=== PATIENT | male | born 1990 | race Caucasian/White ===

== ENCOUNTER → 2017-02-24 | Outpatient (CLI) | payer OTHER ==
--- NOTE | 2017-02-24 17:09 | REP ---
Right TIB-fib series: Two views. History: Small piece of metal imbedded into the lower leg. No comparison radiographs. Findings: AP and lateral views of the right tibia and fibula demonstrate a small 2 mm metallic foreign body projecting in the posteromedial calf soft tissues. This is probably intramuscular. No fracture is seen. No other bony abnormality is seen. Impression: Posteromedial proximal calf soft tissue metallic foreign body. Signed by Cecil Shirley MD 02/25/2017 09:23 A
== END ==
LOC: M ADAMS 14:24
PROVIDERS: ATTEND Physician Assistant Medical
DX: S80.851A Superficial foreign body, right lower leg, initial encounter (principal); X58.XXXA Exposure to other specified factors, initial encounter; Y92.89 Other specified places as the place of occurrence of the external cause; Y93.89 Activity, other specified; Y99.8 Other external cause status

== ENCOUNTER → 2017-10-21 | Outpatient (CLI) | payer OTHER ==
[2017-10-21 16:34] LABS: BASO # 0.1 10^3/uL (0.0-0.2); BASO % 0.5 % (0.0-1.0); EOS % 0.3 % (0.0-3.0); HEMOGLOBIN 17.8 g/dl (14.0-18.0); IMMATURE GRANULOCYTE % 0.5 % (0-3.0); LYMPH # 1.3 10^3/uL (1.5-6.5); LYMPH % 13.4 % (24.0-44.0); MEAN CORPUSCULAR HEMOGLOBIN 32.2 pg (27.0-33.0); MEAN CORPUSCULAR HGB CONC 34.9 g/dl (32.0-36.5); MEAN CORPUSCULAR VOLUME 92.2 fl (80.0-96.0); MONO # 1.2 10^3/uL (0.0-0.8); MONO % 12.1 % (0.0-5.0); NEUTROPHILS # 7.2 10^3/uL (1.8-7.7); NEUTROPHILS % 73.2 % (36.0-66.0); PLATELET COUNT, AUTOMATED 262 10^3/uL (150-450); RED BLOOD COUNT 5.53 10^6/uL (4.30-6.10); RED CELL DISTRIBUTION WIDTH 11.9 % (11.5-14.5); WHITE BLOOD COUNT 9.9 10^3/uL (4.0-10.0)
[2017-10-21 19:31] LABS: ALBUMIN 4.1 GM/DL (3.2-5.2); ALBUMIN/GLOBULIN RATIO 1.14 (1.00-1.93); ALKALINE PHOSPHATASE 101 U/L (45-117); ALT/SGPT 237 U/L (12-78); ANION GAP 10 MEQ/L (8-16); AST/SGOT 149 U/L (7-37); BLOOD UREA NITROGEN 10 MG/DL (7-18); CALCIUM LEVEL 9.5 MG/DL (8.5-10.1); CARBON DIOXIDE LEVEL 28 MEQ/L (21-32); CHLORIDE LEVEL 104 MEQ/L (98-107); CREATININE FOR GFR 1.02 MG/DL (0.70-1.30); FREE T4 1.11 NG/DL (0.76-1.46); GLOMERULAR FILTRATION RATE > 60.0 (>60); GLUCOSE, FASTING 124 MG/DL (70-100); POTASSIUM SERUM 4.2 MEQ/L (3.5-5.1); SODIUM LEVEL 142 MEQ/L (136-145); TOTAL PROTEIN 7.7 GM/DL (6.4-8.2)
== END ==
LOC: M WUC 15:26
DX: R42 Dizziness and giddiness (principal)
CPT/HCPCS: 84443

== ENCOUNTER 2022-08-05 17:28 | Emergency (ER) | payer OTHER ==
[~2022-08-05] VITALS: Ht 172.7 cm; Wt 78.2 kg
[2022-08-05] MEDS ORDERED: LISI5TAB11 PO (17:35)
[2022-08-05 18:47] LABS: BASO # 0.1 10^3/uL (0.0-0.2); EOS % 0.1 % (0.0-3.0); HEMATOCRIT 39.5 % (42.0-52.0); HEMOGLOBIN 13.5 g/dl (13.5-17.5); LYMPH # 0.6 10^3/uL (1.5-5.0); LYMPH % 7.7 % (24.0-44.0); MEAN CORPUSCULAR HGB CONC 34.2 g/dl (32.0-36.5); MEAN CORPUSCULAR VOLUME 99.5 fl (80.0-96.0); MONO # 1.1 10^3/uL (0.0-0.8); MONO % 13.7 % (2.0-8.0); NEUTROPHILS # 5.9 10^3/uL (1.5-8.5); NEUTROPHILS % 77.1 % (36.0-66.0); RED BLOOD COUNT 3.97 10^6/uL (4.30-6.10); WHITE BLOOD COUNT 7.6 10^3/uL (4.0-10.0)
[2022-08-05 19:00] LABS: PLATELET COUNT, AUTOMATED 94 10^3/uL (150-450)
[2022-08-05 19:09] LABS: BLOOD UREA NITROGEN < 5 MG/DL (9-23); CALCIUM LEVEL 7.9 MG/DL (8.5-10.1); CARBON DIOXIDE LEVEL 26 MMOL/L (20-31); CHLORIDE LEVEL 103 MMOL/L (98-107); CREATININE FOR GFR 0.53 MG/DL (0.70-1.30); GLOMERULAR FILTRATION RATE > 60.0 (>60); GLUCOSE, FASTING 105 MG/DL (60-100); POTASSIUM SERUM 3.3 MMOL/L (3.5-5.1); SODIUM LEVEL 140 MMOL/L (136-145)
[2022-08-05] MEDS ORDERED: POTASSIUM CHLORIDE 10MEQ SR TABLET PO ONE (19:15)
[2022-08-05 20:00] VITALS: BP 128/81
== END 2022-08-05 20:46 | disposition home or self-care (01) ==
LOC: M ED 17:28
DX: K40.90 Unilateral inguinal hernia, without obstruction or gangrene, not specified as recurrent (principal); K74.60 Unspecified cirrhosis of liver; I10 Essential (primary) hypertension; F10.10 Alcohol abuse, uncomplicated

== ENCOUNTER → 2022-08-05 | Outpatient (CLI) | payer OTHER ==
[~2022-08-05] MED LIST: LISI5TAB11 PO
== END ==
LOC: M RAD 14:18
PROVIDERS: ATTEND Physician Assistant Medical
DX: N50.812 Left testicular pain (principal)

== ENCOUNTER 2022-08-07 16:33 | Inpatient (IN) | payer OTHER ==
[~2022-08-07] VITALS: Ht 172.7 cm; Wt 77.3 kg
[2022-08-07] MEDS ORDERED: MULTIVITAMIN -ADULT INJECTION 10 ML, THIAMINE INJection 100 MG, FOLIC ACID 1 MG in NS 1... IV ONE (17:45)
[2022-08-07] MEDS ORDERED: LORazepam 2 MG/ML VIAL IV STA (17:45)
[2022-08-07 18:20] LABS: BASO # 0.1 10^3/uL (0.0-0.2); BASO % 0.6 % (0.0-1.0); EOS % 0.1 % (0.0-3.0); HEMATOCRIT 36.5 % (42.0-52.0); HEMOGLOBIN 12.4 g/dl (13.5-17.5); LYMPH # 0.4 10^3/uL (1.5-5.0); LYMPH % 4.8 % (24.0-44.0); MEAN CORPUSCULAR HEMOGLOBIN 34.3 pg (27.0-33.0); MEAN CORPUSCULAR VOLUME 100.8 fl (80.0-96.0); MONO % 12.1 % (2.0-8.0); NEUTROPHILS # 6.7 10^3/uL (1.5-8.5); NEUTROPHILS % 81.9 % (36.0-66.0); PLATELET COUNT, AUTOMATED 91 10^3/uL (150-450); RED BLOOD COUNT 3.62 10^6/uL (4.30-6.10); WHITE BLOOD COUNT 8.1 10^3/uL (4.0-10.0)
[2022-08-07 18:50] LABS: ALBUMIN 2.4 G/DL (3.2-5.2); BILIRUBIN,DIRECT 3.4 MG/DL (<0.4); BILIRUBIN,TOTAL 5.3 MG/DL (0.3-1.2); TOTAL PROTEIN 6.5 G/DL (5.7-8.2)
[2022-08-07 18:53] LABS: BLOOD UREA NITROGEN 8 MG/DL (9-23); CALCIUM LEVEL 8.2 MG/DL (8.5-10.1); CARBON DIOXIDE LEVEL 20 MMOL/L (20-31); CHLORIDE LEVEL 104 MMOL/L (98-107); CREATININE FOR GFR 0.58 MG/DL (0.70-1.30); GLOMERULAR FILTRATION RATE > 60.0 (>60); GLUCOSE, FASTING 110 MG/DL (60-100); SODIUM LEVEL 139 MMOL/L (136-145)
[2022-08-07] MEDS ORDERED: OXAZEPAM 15MG CAP PO ONE (19:35)
[2022-08-07] MEDS ORDERED: LISI5TAB11 PO (22:57)
[2022-08-07] MEDS ORDERED: [UNRECOGNIZED DRUG - CODE] PO (22:57)
[2022-08-07] MEDS ORDERED: KETO2CR EXT (22:57)
[2022-08-07] MEDS ORDERED: HOME MED LIST COMPLETE! XX SCH (23:00)
[2022-08-08 00:12] LABS: RSV AMPLIFICATION NEGATIVE (NEGATIVE)
[2022-08-08 05:57] LABS: BASO # 0.1 10^3/uL (0.0-0.2); BASO % 0.9 % (0.0-1.0); EOS # 0.1 10^3/uL (0.0-0.5); EOS % 0.8 % (0.0-3.0); HEMATOCRIT 36.5 % (42.0-52.0); HEMOGLOBIN 12.2 g/dl (13.5-17.5); LYMPH % 11.1 % (24.0-44.0); MEAN CORPUSCULAR HEMOGLOBIN 34.2 pg (27.0-33.0); MEAN CORPUSCULAR HGB CONC 33.4 g/dl (32.0-36.5); MEAN CORPUSCULAR VOLUME 102.2 fl (80.0-96.0); MONO # 1.3 10^3/uL (0.0-0.8); MONO % 14.4 % (2.0-8.0); NEUTROPHILS # 6.3 10^3/uL (1.5-8.5); NEUTROPHILS % 72.3 % (36.0-66.0); RED BLOOD COUNT 3.57 10^6/uL (4.30-6.10); WHITE BLOOD COUNT 8.8 10^3/uL (4.0-10.0)
[2022-08-08 05:58] LABS: PLATELET COUNT, AUTOMATED 96 10^3/uL (150-450)
[2022-08-08 06:06] LABS: INR 1.51; PROTHROMBIN TIME 18.5 SECONDS (12.5-14.5)
[2022-08-08 06:21] LABS: ALBUMIN 2.2 G/DL (3.2-5.2); ALKALINE PHOSPHATASE 198 U/L (46-116); ALT/SGPT 35 U/L (7.0-40); AST/SGOT 112 U/L (<34); BILIRUBIN,TOTAL 6.2 MG/DL (0.3-1.2); BLOOD UREA NITROGEN 8 MG/DL (9-23); CALCIUM LEVEL 7.9 MG/DL (8.5-10.1); CARBON DIOXIDE LEVEL 22 MMOL/L (20-31); CHLORIDE LEVEL 105 MMOL/L (98-107); CREATININE FOR GFR 0.54 MG/DL (0.70-1.30); GLOMERULAR FILTRATION RATE > 60.0 (>60); GLUCOSE, FASTING 100 MG/DL (60-100); POTASSIUM SERUM 3.6 MMOL/L (3.5-5.1); SODIUM LEVEL 139 MMOL/L (136-145); TOTAL PROTEIN 5.9 G/DL (5.7-8.2)
[2022-08-08 08:58] LABS: SALICYLATE LEVEL < 3.0 MG/DL (<30)
[2022-08-08] MEDS ORDERED: FOLIC ACID 1MG TAB PO SCH (09:00)
[2022-08-08] MEDS ORDERED: THIAMINE 100 MG TAB PO SCH (09:00)
[2022-08-08 09:13] LABS: HEPATITIS B SURFACE ANTIGEN NEGATIVE (NEGATIVE)
[2022-08-08] MEDS: MULTIVITAMINS/MINERALS THERAP 1 TAB PO SCH (09:25)
[2022-08-08] MEDS: lisinopriL 5 MG TAB PO SCH (09:25)
[2022-08-08 09:34] LABS: HEPATITIS B CORE ANTIBODY IGM NEGATIVE (NEGATIVE); HEPATITIS C VIRUS ABY INDEX 0.1 INDEX (<0.8)
[2022-08-08 09:37] LABS: ACETAMINOPHEN LEVEL < 2.0 UG/ML (10.0-20.0)
[2022-08-08] MEDS: LORazepam 2 MG TAB PO PRN (09:51)
[2022-08-08] MEDS ORDERED: MAG SULF 1GM/100ML (MAG RUN) 1 GM in IV 1 EA IV SCH (11:30)
[2022-08-08] MEDS: SPIRONOLACTONE 50 MG TAB PO SCH (12:11)
[2022-08-08] MEDS: FUROSEMIDE 20 MG TAB PO SCH (12:11)
[2022-08-08] MEDS: LACTULOSE 20GM/30ML SYRUP UDC PO SCH ×3 (12:11→21:47)
[2022-08-08] MEDS: OXAZEPAM 10MG CAP PO SCH ×2 (12:16→17:35)
[2022-08-08] MEDS ORDERED: LIDOCAINE 1% MDV 20ML VIAL As Ordered ONE (12:58)
[2022-08-08] MEDS ORDERED: FOLIC ACID 1 MG in NS 50 ML IV SCH (14:00)
[2022-08-08 14:45] LABS: APPEARANCE, BODY FLUID HAZY (CLEAR); ASCITES FL COLOR YELLOW (COLORLESS)
[2022-08-08 14:53] LABS: SOURCE, BODY FLUID ALBUMIN ASCITES
[2022-08-08 14:58] LABS: SOURCE, BODY FLUID GLUCOSE ASCITES
[2022-08-08 15:01] LABS: SOURCE, BODY FLUID TOT PROTEIN ASCITES; TOTAL PROTEIN, BODY FLUID < 2.0 G/DL (NOT ESTABLISHED)
[2022-08-08 15:06] LABS: SOURCE, BODY FLUID ASCITES
[2022-08-08] MEDS: THIAMINE INJection 500 MG in NS 100 ML IV SCH (16:26)
[2022-08-08 16:45] VITALS: BP 146/84
[2022-08-08 16:54] VITALS: BP 146/84
[2022-08-08] MEDS: predniSONE 20 MG TAB PO SCH (17:35)
[2022-08-08] MEDS: GABAPENTIN 300 MG CAP PO SCH ×2 (17:35→21:46)
[2022-08-08] MEDS: ENOXAPARIN 40MG/0.4ML SYRINGE (J1650 PER 10MG) SC SCH (17:36)
[2022-08-08 20:00] VITALS: BP 103/65
[2022-08-08 21:50] VITALS: BP 131/72
[2022-08-09] MEDS: THIAMINE INJection 500 MG in NS 100 ML IV SCH ×3 (00:17→15:15)
[2022-08-09] MEDS: OXAZEPAM 10MG CAP PO SCH ×4 (00:17→19:01)
[2022-08-09] MEDS: LORazepam 2 MG TAB PO PRN (01:56)
[2022-08-09 05:41] VITALS: BP 138/80
[2022-08-09 06:00] VITALS: BP 117/81
[2022-08-09 07:50] LABS: BASO % 0.1 % (0.0-1.0); HEMATOCRIT 37.5 % (42.0-52.0); HEMOGLOBIN 12.7 g/dl (13.5-17.5); LYMPH # 0.6 10^3/uL (1.5-5.0); LYMPH % 6.5 % (24.0-44.0); MEAN CORPUSCULAR HEMOGLOBIN 34.3 pg (27.0-33.0); MEAN CORPUSCULAR HGB CONC 33.9 g/dl (32.0-36.5); MEAN CORPUSCULAR VOLUME 101.4 fl (80.0-96.0); MONO % 11.3 % (2.0-8.0); NEUTROPHILS # 7.4 10^3/uL (1.5-8.5); NEUTROPHILS % 81.9 % (36.0-66.0); PLATELET COUNT, AUTOMATED 111 10^3/uL (150-450); WHITE BLOOD COUNT 9.1 10^3/uL (4.0-10.0)
[2022-08-09] MEDS: LACTULOSE 20GM/30ML SYRUP UDC PO SCH ×3 (08:23→21:14)
[2022-08-09] MEDS: GABAPENTIN 300 MG CAP PO SCH ×3 (08:23→21:14)
[2022-08-09] MEDS: SPIRONOLACTONE 50 MG TAB PO SCH (08:23)
[2022-08-09] MEDS: MULTIVITAMINS/MINERALS THERAP 1 TAB PO SCH (08:23)
[2022-08-09] MEDS: FUROSEMIDE 20 MG TAB PO SCH (08:24)
[2022-08-09] MEDS: predniSONE 20 MG TAB PO SCH (08:24)
[2022-08-09] MEDS: lisinopriL 5 MG TAB PO SCH (08:26)
[2022-08-09] MEDS: ENOXAPARIN 40MG/0.4ML SYRINGE (J1650 PER 10MG) SC SCH (08:27)
[2022-08-09 08:29] LABS: ALBUMIN 2.3 G/DL (3.2-5.2); ALKALINE PHOSPHATASE 201 U/L (46-116); ALT/SGPT 40 U/L (7.0-40); AST/SGOT 108 U/L (<34); BILIRUBIN,TOTAL 5.1 MG/DL (0.3-1.2); BLOOD UREA NITROGEN 7 MG/DL (9-23); CALCIUM LEVEL 8.4 MG/DL (8.5-10.1); CARBON DIOXIDE LEVEL 26 MMOL/L (20-31); CHLORIDE LEVEL 104 MMOL/L (98-107); CREATININE FOR GFR 0.52 MG/DL (0.70-1.30); GLOMERULAR FILTRATION RATE > 60.0 (>60); GLUCOSE, FASTING 99 MG/DL (60-100); POTASSIUM SERUM 3.8 MMOL/L (3.5-5.1); SODIUM LEVEL 137 MMOL/L (136-145); TOTAL PROTEIN 6.7 G/DL (5.7-8.2)
[2022-08-09 09:00] VITALS: BP 118/70
[2022-08-09 14:00] VITALS: BP_SYST 118; BP_SYST 124; BP_DIAS 70; BP_DIAS 81
[2022-08-09] MEDS: FOLIC ACID 1MG TAB PO SCH (15:15)
[2022-08-09 20:00] VITALS: BP 144/87
[2022-08-09 21:15] VITALS: BP 141/83
[2022-08-10] MEDS: THIAMINE INJection 500 MG in NS 100 ML IV SCH ×2 (00:23→09:22)
[2022-08-10] MEDS: OXAZEPAM 10MG CAP PO SCH ×3 (05:01→20:28)
[2022-08-10 05:02] VITALS: BP 148/96
[2022-08-10 06:00] VITALS: BP 136/83
[2022-08-10 06:37] LABS: BASO # 0.1 10^3/uL (0.0-0.2); BASO % 0.5 % (0.0-1.0); EOS % 0.2 % (0.0-3.0); HEMATOCRIT 39.4 % (42.0-52.0); HEMOGLOBIN 13.3 g/dl (13.5-17.5); LYMPH # 1.4 10^3/uL (1.5-5.0); LYMPH % 12.5 % (24.0-44.0); MEAN CORPUSCULAR HEMOGLOBIN 34.4 pg (27.0-33.0); MEAN CORPUSCULAR HGB CONC 33.8 g/dl (32.0-36.5); MEAN CORPUSCULAR VOLUME 101.8 fl (80.0-96.0); MONO # 1.2 10^3/uL (0.0-0.8); MONO % 11.3 % (2.0-8.0); NEUTROPHILS # 8.2 10^3/uL (1.5-8.5); NEUTROPHILS % 74.9 % (36.0-66.0); PLATELET COUNT, AUTOMATED 128 10^3/uL (150-450); RED BLOOD COUNT 3.87 10^6/uL (4.30-6.10); WHITE BLOOD COUNT 10.9 10^3/uL (4.0-10.0)
[2022-08-10 07:03] LABS: MAGNESIUM LEVEL 1.7 MG/DL (1.8-2.4)
[2022-08-10 07:14] LABS: ALBUMIN 2.3 G/DL (3.2-5.2); ALKALINE PHOSPHATASE 193 U/L (46-116); ALT/SGPT 39 U/L (7.0-40); AST/SGOT 81 U/L (<34); BILIRUBIN,TOTAL 4.3 MG/DL (0.3-1.2); BLOOD UREA NITROGEN 10 MG/DL (9-23); CALCIUM LEVEL 8.1 MG/DL (8.5-10.1); CARBON DIOXIDE LEVEL 23 MMOL/L (20-31); CHLORIDE LEVEL 107 MMOL/L (98-107); CREATININE FOR GFR 0.55 MG/DL (0.70-1.30); GLOMERULAR FILTRATION RATE > 60.0 (>60); GLUCOSE, FASTING 83 MG/DL (60-100); POTASSIUM SERUM 3.5 MMOL/L (3.5-5.1); SODIUM LEVEL 142 MMOL/L (136-145); TOTAL PROTEIN 6.4 G/DL (5.7-8.2)
[2022-08-10] MEDS: MULTIVITAMINS/MINERALS THERAP 1 TAB PO SCH (09:22)
[2022-08-10] MEDS: predniSONE 20 MG TAB PO SCH (09:22)
[2022-08-10] MEDS: GABAPENTIN 300 MG CAP PO SCH ×3 (09:22→20:28)
[2022-08-10] MEDS: SPIRONOLACTONE 50 MG TAB PO SCH (09:22)
[2022-08-10] MEDS: LACTULOSE 20GM/30ML SYRUP UDC PO SCH ×3 (09:23→20:28)
[2022-08-10] MEDS: FUROSEMIDE 20 MG TAB PO SCH (09:23)
[2022-08-10] MEDS: FOLIC ACID 1MG TAB PO SCH (09:23)
[2022-08-10] MEDS: lisinopriL 5 MG TAB PO SCH (09:23)
[2022-08-10] MEDS: ENOXAPARIN 40MG/0.4ML SYRINGE (J1650 PER 10MG) SC SCH (09:26)
[2022-08-10 12:23] LABS: IRON (FE) 59 UG/DL (65-175); PERCENT SATURATION 24.4 % (19.7-50.0); TOTAL IRON BINDING CAPACITY 242 UG/DL (250-425)
[2022-08-10 12:27] LABS: FERRITIN 290.9 NG/ML (10.5-307.3); FOLATE 14.5 NG/ML (>5.4)
[2022-08-10 12:28] LABS: VITAMIN B12 LEVEL 1587 PG/ML (211-911)
[2022-08-10 14:00] VITALS: BP 126/77
[2022-08-10] MEDS: MAG SULF 1GM/100ML (MAG RUN) 1 GM in IV 1 EA IV SCH ×2 (19:24→20:28)
[2022-08-10 20:00] VITALS: BP 138/78
[2022-08-10 22:00] VITALS: BP 138/78
[2022-08-11 04:30] VITALS: BP 137/80
[2022-08-11] MEDS: OXAZEPAM 10MG CAP PO SCH ×2 (04:55→17:10)
[2022-08-11 06:14] LABS: BASO # 0.1 10^3/uL (0.0-0.2); BASO % 0.6 % (0.0-1.0); EOS % 0.2 % (0.0-3.0); HEMATOCRIT 40.2 % (42.0-52.0); HEMOGLOBIN 13.6 g/dl (13.5-17.5); LYMPH # 1.3 10^3/uL (1.5-5.0); LYMPH % 11.9 % (24.0-44.0); MEAN CORPUSCULAR HEMOGLOBIN 34.7 pg (27.0-33.0); MEAN CORPUSCULAR HGB CONC 33.8 g/dl (32.0-36.5); MEAN CORPUSCULAR VOLUME 102.6 fl (80.0-96.0); MONO # 1.2 10^3/uL (0.0-0.8); MONO % 10.9 % (2.0-8.0); NEUTROPHILS # 8.1 10^3/uL (1.5-8.5); NEUTROPHILS % 75.7 % (36.0-66.0); PLATELET COUNT, AUTOMATED 137 10^3/uL (150-450); RED BLOOD COUNT 3.92 10^6/uL (4.30-6.10); WHITE BLOOD COUNT 10.7 10^3/uL (4.0-10.0)
[2022-08-11 06:25] LABS: INR 1.56
[2022-08-11 06:26] LABS: PARTIAL THROMBOPLASTIN TIME 29.9 SECONDS (24.8-34.2)
[2022-08-11 06:34] LABS: MAGNESIUM LEVEL 2.1 MG/DL (1.8-2.4)
[2022-08-11 06:35] LABS: ALBUMIN 2.3 G/DL (3.2-5.2); ALKALINE PHOSPHATASE 185 U/L (46-116); ALT/SGPT 45 U/L (7.0-40); AST/SGOT 80 U/L (<34); BILIRUBIN,TOTAL 3.8 MG/DL (0.3-1.2); BLOOD UREA NITROGEN 10 MG/DL (9-23); CALCIUM LEVEL 8.3 MG/DL (8.5-10.1); CARBON DIOXIDE LEVEL 26 MMOL/L (20-31); CHLORIDE LEVEL 104 MMOL/L (98-107); CREATININE FOR GFR 0.52 MG/DL (0.70-1.30); GLOMERULAR FILTRATION RATE > 60.0 (>60); GLUCOSE, FASTING 140 MG/DL (60-100); PHOSPHORUS LEVEL 3.1 MG/DL (2.5-4.9); POTASSIUM SERUM 3.6 MMOL/L (3.5-5.1); SODIUM LEVEL 141 MMOL/L (136-145); TOTAL PROTEIN 6.4 G/DL (5.7-8.2)
[2022-08-11] MEDS: ENOXAPARIN 40MG/0.4ML SYRINGE (J1650 PER 10MG) SC SCH (09:00)
[2022-08-11 11:00] VITALS: BP 125/70
[2022-08-11] MEDS: GABAPENTIN 300 MG CAP PO SCH (11:06)
[2022-08-11] MEDS: FOLIC ACID 1MG TAB PO SCH (11:06)
[2022-08-11] MEDS: THIAMINE 100 MG TAB PO SCH (11:06)
[2022-08-11] MEDS: MULTIVITAMINS/MINERALS THERAP 1 TAB PO SCH (11:06)
[2022-08-11] MEDS: LACTULOSE 20GM/30ML SYRUP UDC PO SCH ×3 (11:06→21:10)
[2022-08-11] MEDS: predniSONE 20 MG TAB PO SCH (11:06)
[2022-08-11] MEDS: FUROSEMIDE 20 MG TAB PO SCH (11:06)
[2022-08-11] MEDS: SPIRONOLACTONE 50 MG TAB PO SCH (11:06)
[2022-08-11] MEDS: lisinopriL 5 MG TAB PO SCH (11:10)
[2022-08-11] MEDS: PROPRANOLOL 10 MG TAB PO SCH (11:14)
[2022-08-11 14:00] VITALS: BP 117/67
[2022-08-11 21:50] VITALS: BP 134/81
[2022-08-11 22:00] VITALS: BP 134/81
[2022-08-12 04:50] VITALS: BP 134/83
[2022-08-12 05:47] VITALS: BP 134/83
[2022-08-12] MEDS: OXAZEPAM 10MG CAP PO SCH ×2 (05:47→16:26)
[2022-08-12 08:25] LABS: BASO # 0.1 10^3/uL (0.0-0.2); BASO % 0.6 % (0.0-1.0); EOS % 0.2 % (0.0-3.0); HEMATOCRIT 40.1 % (42.0-52.0); HEMOGLOBIN 13.6 g/dl (13.5-17.5); LYMPH # 1.5 10^3/uL (1.5-5.0); LYMPH % 12.6 % (24.0-44.0); MEAN CORPUSCULAR HEMOGLOBIN 34.3 pg (27.0-33.0); MEAN CORPUSCULAR HGB CONC 33.9 g/dl (32.0-36.5); MONO % 13.6 % (2.0-8.0); NEUTROPHILS # 8.8 10^3/uL (1.5-8.5); NEUTROPHILS % 72.2 % (36.0-66.0); PLATELET COUNT, AUTOMATED 150 10^3/uL (150-450); RED BLOOD COUNT 3.97 10^6/uL (4.30-6.10); WHITE BLOOD COUNT 12.2 10^3/uL (4.0-10.0)
[2022-08-12 08:30] LABS: MONO # 1.7 10^3/uL (0.0-0.8)
[2022-08-12 08:48] LABS: ALBUMIN 2.2 G/DL (3.2-5.2); ALKALINE PHOSPHATASE 171 U/L (46-116); ALT/SGPT 50 U/L (7.0-40); AST/SGOT 87 U/L (<34); BILIRUBIN,TOTAL 3.5 MG/DL (0.3-1.2); BLOOD UREA NITROGEN 10 MG/DL (9-23); CALCIUM LEVEL 7.9 MG/DL (8.5-10.1); CARBON DIOXIDE LEVEL 25 MMOL/L (20-31); CHLORIDE LEVEL 103 MMOL/L (98-107); CREATININE FOR GFR 0.54 MG/DL (0.70-1.30); GLOMERULAR FILTRATION RATE > 60.0 (>60); GLUCOSE, FASTING 101 MG/DL (60-100); POTASSIUM SERUM 3.5 MMOL/L (3.5-5.1); SODIUM LEVEL 138 MMOL/L (136-145); TOTAL PROTEIN 6.3 G/DL (5.7-8.2)
[2022-08-12 08:49] LABS: MAGNESIUM LEVEL 1.8 MG/DL (1.8-2.4)
[2022-08-12] MEDS: ENOXAPARIN 40MG/0.4ML SYRINGE (J1650 PER 10MG) SC SCH ×2 (09:00→09:46)
[2022-08-12] MEDS: FUROSEMIDE 20 MG TAB PO SCH (09:46)
[2022-08-12] MEDS: predniSONE 20 MG TAB PO SCH (09:46)
[2022-08-12] MEDS: FOLIC ACID 1MG TAB PO SCH (09:46)
[2022-08-12] MEDS: LACTULOSE 20GM/30ML SYRUP UDC PO SCH ×3 (09:47→21:38)
[2022-08-12] MEDS: lisinopriL 5 MG TAB PO SCH (09:47)
[2022-08-12] MEDS: SPIRONOLACTONE 50 MG TAB PO SCH (09:47)
[2022-08-12] MEDS: THIAMINE 100 MG TAB PO SCH (09:47)
[2022-08-12] MEDS: MULTIVITAMINS/MINERALS THERAP 1 TAB PO SCH (09:47)
[2022-08-12] MEDS: PROPRANOLOL 10 MG TAB PO SCH (09:47)
[2022-08-12 14:00] VITALS: BP 110/63
[2022-08-12 22:00] VITALS: BP 124/71
[2022-08-13 05:00] VITALS: BP 145/78
[2022-08-13] MEDS: OXAZEPAM 10MG CAP PO SCH (05:45)
[2022-08-13 06:30] LABS: BASO # 0.1 10^3/uL (0.0-0.2); BASO % 0.5 % (0.0-1.0); EOS % 0.2 % (0.0-3.0); HEMATOCRIT 41.4 % (42.0-52.0); HEMOGLOBIN 13.9 g/dl (13.5-17.5); LYMPH # 1.4 10^3/uL (1.5-5.0); LYMPH % 11.4 % (24.0-44.0); MEAN CORPUSCULAR HEMOGLOBIN 34.3 pg (27.0-33.0); MEAN CORPUSCULAR HGB CONC 33.6 g/dl (32.0-36.5); MEAN CORPUSCULAR VOLUME 102.2 fl (80.0-96.0); MONO % 15.3 % (2.0-8.0); NEUTROPHILS # 8.5 10^3/uL (1.5-8.5); NEUTROPHILS % 71.8 % (36.0-66.0); PLATELET COUNT, AUTOMATED 157 10^3/uL (150-450); RED BLOOD COUNT 4.05 10^6/uL (4.30-6.10); WHITE BLOOD COUNT 11.9 10^3/uL (4.0-10.0)
[2022-08-13 06:44] LABS: MONO # 1.8 10^3/uL (0.0-0.8)
[2022-08-13 06:58] LABS: ALBUMIN 2.1 G/DL (3.2-5.2); ALKALINE PHOSPHATASE 160 U/L (46-116); ALT/SGPT 52 U/L (7.0-40); AST/SGOT 84 U/L (<34); BILIRUBIN,TOTAL 3.2 MG/DL (0.3-1.2); BLOOD UREA NITROGEN 13 MG/DL (9-23); CALCIUM LEVEL 8.5 MG/DL (8.5-10.1); CARBON DIOXIDE LEVEL 28 MMOL/L (20-31); CHLORIDE LEVEL 102 MMOL/L (98-107); CREATININE FOR GFR 0.61 MG/DL (0.70-1.30); GLOMERULAR FILTRATION RATE > 60.0 (>60); GLUCOSE, FASTING 100 MG/DL (60-100); POTASSIUM SERUM 3.8 MMOL/L (3.5-5.1); SODIUM LEVEL 139 MMOL/L (136-145); TOTAL PROTEIN 6.2 G/DL (5.7-8.2)
[2022-08-13 09:00] VITALS: BP 104/59
[2022-08-13] MEDS: ENOXAPARIN 40MG/0.4ML SYRINGE (J1650 PER 10MG) SC SCH (09:00)
[2022-08-13] MEDS ORDERED: PROPRANOLOL 10 MG TAB PO SCH (09:00)
[2022-08-13] MEDS ORDERED: FUROSEMIDE 40 MG TAB PO SCH (09:00)
[2022-08-13] MEDS ORDERED: predniSONE 20 MG TAB PO SCH (09:00)
[2022-08-13] MEDS: MULTIVITAMINS/MINERALS THERAP 1 TAB PO SCH (09:24)
[2022-08-13] MEDS: LACTULOSE 20GM/30ML SYRUP UDC PO SCH (09:24)
[2022-08-13] MEDS: SPIRONOLACTONE 50 MG TAB PO SCH (09:24)
[2022-08-13] MEDS: FOLIC ACID 1MG TAB PO SCH (09:25)
[2022-08-13] MEDS: THIAMINE 100 MG TAB PO SCH (09:25)
[2022-08-13] MEDS ORDERED: THIA100TA PO (10:39)
[2022-08-13] MEDS ORDERED: ALDA50TA2 PO (10:39)
[2022-08-13] MEDS ORDERED: LACT20EL PO (10:39)
[2022-08-13] MEDS ORDERED: FOLI1TAB11 PO (10:39)
[2022-08-13] MEDS ORDERED: PRED10TA2 PO (10:39)
[2022-08-13] MEDS ORDERED: OXAZ10CA3 PO (10:39)
[2022-08-13] MEDS ORDERED: LASI20TA3 PO (10:39)
[2022-08-13] MEDS ORDERED: VITMTA PO (10:39)
[2022-08-14] MEDS ORDERED: OXAZEPAM 10MG CAP PO SCH (09:00)
== END 2022-08-13 11:11 | disposition home or self-care (01) | DRG 775 ==
LOC: EDBD 16:33 → M ED 16:33 → M ED INP 08-08 01:19 → ENRESERV 08-08 15:37 → M MSPAV 08-08 16:49
PROVIDERS: ADMIT Internal Medicine; ATTEND Internal Medicine Nephrology
PROC: 0W9G3ZZ Drainage of Peritoneal Cavity, Percutaneous Approach (ICD-10-PCS; principal; 2022-08-08 13:30)
DX: F10.288 Alcohol dependence with other alcohol-induced disorder (principal); I85.10 Secondary esophageal varices without bleeding; K76.6 Portal hypertension; R56.9 Unspecified convulsions; D69.6 Thrombocytopenia, unspecified; E83.42 Hypomagnesemia; K70.11 Alcoholic hepatitis with ascites; K70.31 Alcoholic cirrhosis of liver with ascites; I10 Essential (primary) hypertension; K40.20 Bilateral inguinal hernia, without obstruction or gangrene, not specified as recurrent; D53.9 Nutritional anemia, unspecified; D72.829 Elevated white blood cell count, unspecified; Z79.899 Other long term (current) drug therapy

== ENCOUNTER → 2022-08-29 | Outpatient (REF) | payer OTHER ==
[~2022-08-29] MED LIST changes: +ALDA50TA2 PO; +FOLI1TAB11 PO; +KETO2CR EXT; +LACT20EL PO; +LASI20TA3 PO; +OXAZ10CA3 PO; +PRED10TA2 PO; +THIA100TA PO; +VITMTA PO; +[UNRECOGNIZED DRUG - CODE] PO
[2022-08-29 16:45] LABS: BASO # 0.1 10^3/uL (0.0-0.2); BASO % 0.4 % (0.0-1.0); EOS # 0.2 10^3/uL (0.0-0.5); EOS % 1.3 % (0.0-3.0); HEMATOCRIT 44.8 % (42.0-52.0); HEMOGLOBIN 14.8 g/dl (13.5-17.5); LYMPH # 1.5 10^3/uL (1.5-5.0); LYMPH % 9.3 % (24.0-44.0); MEAN CORPUSCULAR HEMOGLOBIN 34.5 pg (27.0-33.0); MEAN CORPUSCULAR VOLUME 104.4 fl (80.0-96.0); MONO % 12.4 % (2.0-8.0); NEUTROPHILS # 12.2 10^3/uL (1.5-8.5); NEUTROPHILS % 75.9 % (36.0-66.0); PLATELET COUNT, AUTOMATED 135 10^3/uL (150-450); RED BLOOD COUNT 4.29 10^6/uL (4.30-6.10); WHITE BLOOD COUNT 16.1 10^3/uL (4.0-10.0)
[2022-08-29 16:55] LABS: INR 1.24; PROTHROMBIN TIME 15.9 SECONDS (12.5-14.5)
[2022-08-29 17:14] LABS: LIPASE 86 U/L (12-53)
[2022-08-29 17:15] LABS: AMYLASE 135 U/L (30-118)
[2022-08-29 17:16] LABS: ALBUMIN 2.4 G/DL (3.2-5.2); ALKALINE PHOSPHATASE 132 U/L (46-116); ALT/SGPT 100 U/L (7.0-40); AST/SGOT 71 U/L (<34); BILIRUBIN,TOTAL 2.1 MG/DL (0.3-1.2); BLOOD UREA NITROGEN 14 MG/DL (9-23); CALCIUM LEVEL 9.1 MG/DL (8.5-10.1); CARBON DIOXIDE LEVEL 28 MMOL/L (20-31); CHLORIDE LEVEL 103 MMOL/L (98-107); CREATININE FOR GFR 0.64 MG/DL (0.70-1.30); GLOMERULAR FILTRATION RATE > 60.0 (>60); GLUCOSE, FASTING 101 MG/DL (60-100); POTASSIUM SERUM 3.8 MMOL/L (3.5-5.1); SODIUM LEVEL 138 MMOL/L (136-145); TOTAL PROTEIN 6.1 G/DL (5.7-8.2)
[2022-08-29 20:36] LABS: HEPATITIS B SURFACE ANTIBODY NEGATIVE (POSITIVE)
== END ==
LOC: M LAB REF 16:24
PROVIDERS: ATTEND Nurse Practitioner Family
DX: R10.11 Right upper quadrant pain (principal); K70.31 Alcoholic cirrhosis of liver with ascites

== ENCOUNTER → 2022-09-15 | Outpatient (REF) | payer OTHER | LOC: M LAB REF 12:23 | PROVIDERS: ATTEND Nurse Practitioner Family | DX: J02.9 Acute pharyngitis, unspecified (principal) ==

== ENCOUNTER → 2022-10-07 | Outpatient (CLI) | payer OTHER | LOC: M RAD 08:58 | PROVIDERS: ATTEND Student in an Organized Health Care Education/Training Program | DX: K70.30 Alcoholic cirrhosis of liver without ascites (principal) ==

== ENCOUNTER → 2022-11-12 | Outpatient (REF) | payer OTHER ==
[2022-11-12 14:54] LABS: HEMATOCRIT 42.9 % (42.0-52.0); HEMOGLOBIN 14.2 g/dl (13.5-17.5); MEAN CORPUSCULAR HEMOGLOBIN 32.6 pg (27.0-33.0); MEAN CORPUSCULAR HGB CONC 33.1 g/dl (32.0-36.5); MEAN CORPUSCULAR VOLUME 98.6 fl (80.0-96.0); PLATELET COUNT, AUTOMATED 154 10^3/uL (150-450); RED BLOOD COUNT 4.35 10^6/uL (4.30-6.10); WHITE BLOOD COUNT 7.2 10^3/uL (4.0-10.0)
[2022-11-12 15:08] LABS: PARTIAL THROMBOPLASTIN TIME 33.4 SECONDS (24.8-34.2)
[2022-11-12 15:21] LABS: INR 1.38; PROTHROMBIN TIME 17.2 SECONDS (12.5-14.5)
[2022-11-12 18:49] LABS: IRON (FE) 131 UG/DL (65-175); PERCENT SATURATION 43.5 % (19.7-50.0); TOTAL IRON BINDING CAPACITY 301 UG/DL (250-425)
[2022-11-12 18:55] LABS: ALBUMIN 2.7 G/DL (3.2-5.2); ALKALINE PHOSPHATASE 111 U/L (46-116); ALT/SGPT 31 U/L (7.0-40); AST/SGOT 40 U/L (<34); BILIRUBIN,DIRECT 0.5 MG/DL (<0.4); BILIRUBIN,TOTAL 1.8 MG/DL (0.3-1.2); BLOOD UREA NITROGEN 8 MG/DL (9-23); CALCIUM LEVEL 9.2 MG/DL (8.5-10.1); CARBON DIOXIDE LEVEL 26 MMOL/L (20-31); CHLORIDE LEVEL 106 MMOL/L (98-107); CREATININE FOR GFR 0.68 MG/DL (0.70-1.30); FERRITIN 101.4 NG/ML (10.5-307.3); GLOMERULAR FILTRATION RATE > 60.0 (>60); GLUCOSE, FASTING 79 MG/DL (60-100); POTASSIUM SERUM 3.6 MMOL/L (3.5-5.1); SODIUM LEVEL 140 MMOL/L (136-145); THYROID STIMULATING HORMONE 3.867 uIU/ML (0.55-4.78); TOTAL PROTEIN 5.9 G/DL (5.7-8.2)
[2022-11-12 18:58] LABS: HEPATITIS B SURFACE ANTIBODY NEGATIVE (POSITIVE)
[2022-11-12 19:09] LABS: HEPATITIS B SURFACE ANTIGEN NEGATIVE (NEGATIVE)
[2022-11-12 19:31] LABS: HEPATITIS C VIRUS ABY INDEX 0.1 INDEX (<0.8)
== END ==
LOC: M LABDRWAD 12:47
PROVIDERS: ATTEND Student in an Organized Health Care Education/Training Program
DX: K70.30 Alcoholic cirrhosis of liver without ascites (principal)

== ENCOUNTER → 2023-07-07 | Outpatient (REF) | payer OTHER ==
[2023-07-07 13:01] LABS: HEMOGLOBIN 17.2 g/dl (13.5-17.5); MEAN CORPUSCULAR HEMOGLOBIN 31.4 pg (27.0-33.0); MEAN CORPUSCULAR HGB CONC 35.1 g/dl (32.0-36.5); MEAN CORPUSCULAR VOLUME 89.6 fl (80.0-96.0); PLATELET COUNT, AUTOMATED 165 10^3/uL (150-450); RED BLOOD COUNT 5.47 10^6/uL (4.30-6.10); WHITE BLOOD COUNT 7.6 10^3/uL (4.0-10.0)
[2023-07-07 13:14] LABS: INR 1.28; PROTHROMBIN TIME 15.6 SECONDS (12.5-14.5)
[2023-07-07 13:24] LABS: ALBUMIN 3.5 G/DL (3.2-5.2); ALKALINE PHOSPHATASE 167 U/L (46-116); ALT/SGPT 34 U/L (7.0-40); AST/SGOT 30 U/L (<34); BLOOD UREA NITROGEN 9 MG/DL (9-23); CALCIUM LEVEL 9.3 MG/DL (8.5-10.1); CARBON DIOXIDE LEVEL 29 MMOL/L (20-31); CHLORIDE LEVEL 103 MMOL/L (98-107); CREATININE FOR GFR 0.86 MG/DL (0.70-1.30); GLOMERULAR FILTRATION RATE > 60.0 (>60); GLUCOSE, FASTING 94 MG/DL (60-100); POTASSIUM SERUM 3.8 MMOL/L (3.5-5.1); SODIUM LEVEL 140 MMOL/L (136-145); TOTAL PROTEIN 6.5 G/DL (5.7-8.2)
== END ==
LOC: M LABDRWAD 12:35
PROVIDERS: ATTEND Student in an Organized Health Care Education/Training Program
DX: I85.00 Esophageal varices without bleeding (principal); K70.30 Alcoholic cirrhosis of liver without ascites

== ENCOUNTER → 2023-09-18 | Outpatient (REF) | payer OTHER | LOC: M LAB REF 12:20 | PROVIDERS: ATTEND Nurse Practitioner Family | DX: J02.9 Acute pharyngitis, unspecified (principal) ==

== ENCOUNTER → 2024-05-02 | Outpatient (REF) | payer OTHER ==
[2024-05-02 17:09] LABS: HEMATOCRIT 47.7 % (42.0-52.0); HEMOGLOBIN 16.2 g/dl (13.5-17.5); MEAN CORPUSCULAR HEMOGLOBIN 30.7 pg (27.0-33.0); MEAN CORPUSCULAR VOLUME 90.5 fl (80.0-96.0); PLATELET COUNT, AUTOMATED 153 10^3/uL (150-450); RED BLOOD COUNT 5.27 10^6/uL (4.30-6.10); WHITE BLOOD COUNT 7.5 10^3/uL (4.0-10.0)
[2024-05-02 17:17] LABS: ALBUMIN 3.6 G/DL (3.2-5.2); ALKALINE PHOSPHATASE 132 U/L (46-116); ALT/SGPT 32 U/L (7.0-40); AST/SGOT 22 U/L (<34); BILIRUBIN,TOTAL 1.4 MG/DL (0.3-1.2); BLOOD UREA NITROGEN 9 MG/DL (9-23); CALCIUM LEVEL 8.9 MG/DL (8.5-10.1); CARBON DIOXIDE LEVEL 30 MMOL/L (20-31); CHLORIDE LEVEL 106 MMOL/L (98-107); CREATININE FOR GFR 0.95 MG/DL (0.70-1.30); GLOMERULAR FILTRATION RATE > 60.0 (>60); GLUCOSE, FASTING 89 MG/DL (60-100); SODIUM LEVEL 140 MMOL/L (136-145); TOTAL PROTEIN 6.5 G/DL (5.7-8.2)
[2024-05-02 17:35] LABS: INR 1.21
== END ==
LOC: M LABDRWAD 16:58
PROVIDERS: ATTEND Student in an Organized Health Care Education/Training Program
DX: K70.30 Alcoholic cirrhosis of liver without ascites (principal); I85.00 Esophageal varices without bleeding

== ENCOUNTER → 2024-10-07 | Outpatient (REF) | payer OTHER ==
[2024-10-07 17:08] LABS: HEMATOCRIT 47.9 % (42.0-52.0); HEMOGLOBIN 16.8 g/dl (13.5-17.5); MEAN CORPUSCULAR HEMOGLOBIN 31.2 pg (27.0-33.0); MEAN CORPUSCULAR HGB CONC 35.1 g/dl (32.0-36.5); MEAN CORPUSCULAR VOLUME 88.9 fl (80.0-96.0); PLATELET COUNT, AUTOMATED 171 10^3/uL (150-450); RED BLOOD COUNT 5.39 10^6/uL (4.30-6.10); WHITE BLOOD COUNT 6.4 10^3/uL (4.0-10.0)
[2024-10-07 17:17] LABS: INR 1.14; PROTHROMBIN TIME 14.9 SECONDS (12.5-14.5)
[2024-10-07 17:30] LABS: ALBUMIN 3.5 G/DL (3.2-5.2); ALKALINE PHOSPHATASE 108 U/L (40-129); ALT/SGPT 28 U/L (7.0-40); AST/SGOT 20 U/L (<34); BILIRUBIN,TOTAL 0.9 MG/DL (0.3-1.2); BLOOD UREA NITROGEN 12 MG/DL (9-23); CALCIUM LEVEL 9.1 MG/DL (8.5-10.1); CARBON DIOXIDE LEVEL 28 MMOL/L (20-31); CHLORIDE LEVEL 106 MMOL/L (98-107); CREATININE FOR GFR 0.92 MG/DL (0.70-1.30); GLOMERULAR FILTRATION RATE > 60.0 (>60); GLUCOSE, FASTING 121 MG/DL (60-100); POTASSIUM SERUM 3.9 MMOL/L (3.5-5.1); SODIUM LEVEL 143 MMOL/L (136-145); TOTAL PROTEIN 6.6 G/DL (5.7-8.2)
== END ==
LOC: M LABDRWAD 16:51
PROVIDERS: ATTEND Student in an Organized Health Care Education/Training Program
DX: K70.30 Alcoholic cirrhosis of liver without ascites (principal)

== ENCOUNTER → 2024-10-12 | Outpatient (CLI) | payer OTHER | LOC: M RAD 11:10 | PROVIDERS: ATTEND Student in an Organized Health Care Education/Training Program | DX: K70.30 Alcoholic cirrhosis of liver without ascites (principal); R16.1 Splenomegaly, not elsewhere classified ==